=== PATIENT | male | born 1980 | race Caucasian/White ===

== ENCOUNTER 2020-12-04 09:46 | Outpatient (CLI) | payer BC, MEDICAID, SELFPAY ==
--- NOTE | 2020-12-04 10:14 | NM_ITS ---
WS: [id number] NUCLEAR MEDICINE THYROID UPTAKE AND SCAN HISTORY: HYPERTHYROIDISM COMPARISON: None available. Radionucleotide: 132 uCi Iodine-123 sodium iodide capsule. Oral ingestion. Imaging performed at 24 hours post ingestion of capsule. Marker placed over the chin and suprasternal notch. Homogeneous symmetric distribution throughout the thyroid gland. No area of focal photopenia or incre ased uptake to suggest a hypo or hyperfunctioning nodule. Gland measures approximate 5 cm in length w hich is normal. Thyroid uptake at 24 hours: 33.5%. (Normal uptake at 24 hours 10-30%). NM/NM thyroid uptake multi 57709 IMPRESSION: 1. Normal thyroid scan. No photopenic defects. 2. Very mildly elevated thyroid uptake secondary to mild hyperthyroidism.
== END 2020-12-04 09:47 | disposition home or self-care (01) ==
PROVIDERS: Visit Provider Family Medicine
DX: E05.90 Thyrotoxicosis, unspecified without thyrotoxic crisis or storm (principal)
CPT/HCPCS: 78014; A9516

== ENCOUNTER 2020-12-26 16:56 | Outpatient (CLI) | payer BC, MEDICAID, SELFPAY ==
--- NOTE | 2020-12-26 17:03 | XR_ITS ---
WS: [id number] Chest 2 views, 12/26/2020 Clinical Data: CHEST DISCOMFORT Comparison: Portable chest, 03/23/2013. Findings: No nodules, masses or effusions are seen. The heart is normal. The pulmonary vascularity is not increased. No pneumonia or pneumothorax is seen. XR/XR chest 2V* [id number] Impression: Negative chest.
== END 2020-12-26 16:57 | disposition home or self-care (01) ==
LOC: RAD 17:00
PROVIDERS: PCP Family Medicine; Visit Provider Family Medicine
DX: R07.89 Other chest pain (principal); R74.8 Abnormal levels of other serum enzymes
CPT/HCPCS: 71046

== ENCOUNTER → 2021-01-25 13:21 | Outpatient (BNVA) | payer BC, MEDICAID, SELFPAY | PROVIDERS: PCP Family Medicine; Referring Provider Family Medicine; Visit Provider Internal Medicine | DX: E05.00 Thyrotoxicosis with diffuse goiter without thyrotoxic crisis or storm (principal); Z87.891 Personal history of nicotine dependence | CPT/HCPCS: 99204 ==

== ENCOUNTER → 2021-04-03 08:59 | Outpatient (BNVA) | payer BC, MEDICAID, SELFPAY | PROVIDERS: PCP Family Medicine; Visit Provider Surgery | DX: Z11.52 Encounter for screening for COVID-19 (principal); Z20.822 Contact with and (suspected) exposure to COVID-19 | CPT/HCPCS: 87635 ==

== ENCOUNTER 2021-04-05 11:22 | Day surgery (SDC) | payer BC, MEDICAID, SELFPAY ==
[2021-04-04 11:06] VITALS: BMI 25.1
--- NOTE | 2021-04-05 11:51 | ANES.PREANE2 ---
Pre-Anesthetic Assessment Pre-Anesthetic Assessment: Height/Weight: Height 1.78 m Weight 79.379 kg Proposed Procedure: Operation Date: 04/05/21 12:30 Proposed Procedures p Colonoscopy 04344 K92.1(Not Applicable) - Krish Mckeon MD Was Beta Camille taken within 24 hours: N/A Was Clonidine taken within 24 hours: N/A Social: Social History: Tobacco and No alcohol Exam: Pre-Anes Outpt Exam: alert, oriented x 3, clear to auscultation bilaterally and regular rate & rhythm Airway: Cervical ROM: WNL MP: 2 Dentition: Chipped Pulmonary: Pulmonary: COPD Anesthetic Plan: ASA status: 2 Anesthesia: MAC Risk of > 500 ml blood loss (7ml/kg in children): No PFSH Anesthesia PFSH: Medical History Hyperthyroidism Surgical History No pertinent past surgical history Family History Father Hip joint replacement by other means Mother Hypertension Liver problem Social History Second hand smoke exposure: Yes Smoking risk assessment/counseling performed?: Yes Alcohol intake: never Desire information about alcohol rehabilitation?: No Counseling given: No Desire information about substance/drug rehabilitation?: No Counseling given: Yes Adopted: No Caregiver/support person: No Lives independently: Yes Household members: spouse Housing: House Marital status: Number of children: 5 Highest education level completed: Some College, No Degree service: No Current occupational status: employed Data Anesthesia Cardiac Studies: No Data to Display
[2021-04-05 12:16] VITALS: BP 132/85; PULSE 65; RESP 18; TEMP 36.5; O2SAT 95
[2021-04-05] MEDS: sodium chloride 0.9% 1,000 ML 30 ML IV (12:22)
--- NOTE | 2021-04-05 13:10 | P.HP_ITS ---
Same Day Surgery H&P Indication for Procedure/HPI DATE OF PROCEDURE: April 05, 2021 CHIEF COMPLAINT/INDICATIONFOR SURGICAL PROCEDURE: colonoscopy PREOP DIAGNOSIS: diagnostic PLANNED PROCEDRUE: Operation Date: 04/05/21 12:30 Proposed Procedures p Colonoscopy 32995 K92.1(Not Applicable) - Krish Mckeon MD Medications/Allergies* Home Medications Medication Instructions Recorded Confirmed Type No Known Home Medications 01/25/21 04/04/21 History Allergies/Adverse Reactions Allergy/AdvReac Type Severity Reaction Status Date / Time No Known Allergies Allergy Verified 04/04/21 11:05 Current Medications: Generic Name Dose Route Start Last Admin Trade Name Freq PRN Reason Stop Dose Admin Sodium Chloride 1,000 mls @ 30 mls/hr 04/05/21 12:00 04/05/21 12:22 Sodium Chloride 0.9% IV 04/06/21 11:59 30 mls/hr .Q24H [place] Administration Pertinent History/Comorbid Conditions* Medical History (Updated 01/27/21 @ 16:37 by Toi Taylor MD) Hyperthyroidism Surgical History (Updated 01/27/21 @ 13:37 by Toi Taylor MD) No pertinent past surgical history Family History (Updated 01/25/21 @ 13:33 by Bobbi Willard LPN) Liver problem Mother Hip joint replacement by other means Father Hypertension Mother Social History Second hand smoke exposure: Yes Smoking risk assessment/counseling performed?: Yes Alcohol intake: never Desire information about alcohol rehabilitation?: No Counseling given: No Desire information about substance/drug rehabilitation?: No Counseling given: Yes Adopted: No Caregiver/support person: No Lives independently: Yes Household members: spouse Housing: House Marital status: Number of children: 5 Highest education level completed: Some College, No Degree service: No Current occupational status: employed Pertinent Exam Findings alert, oriented x 3 and regular rate & rhythm Recommendations Surgery/Procedure today Coding Level of Care Code Acute Director Of Operations Support for Mariam Jimenez
[2021-04-05 13:34] VITALS: BP 122/80; PULSE 74; RESP 14; TEMP 36.3; O2SAT 95
[2021-04-05 13:50] VITALS: BP 109/73; PULSE 64; RESP 16; O2SAT 95
--- NOTE | 2021-04-05 13:59 | ANE.PACU2 ---
Documented by User: Jovana Brewster CRNA 04/05/21 13:59 Inpatient post-anesthesia follow up: Airway intact: Yes Vital signs: Temperature 97.3 F Pulse Rate 64 Respiratory Rate 16 Blood Pressure 109/73 Pulse Oximetry 95 Oxygen Delivery Me thod Room Air Oxygen Flow Rate 3 Fraction of Inspir ed Oxygen Hydration adequate: Yes Mental status: Baseline
== END 2021-04-05 14:14 | disposition home or self-care (01) ==
PROVIDERS: PCP Family Medicine; Visit Provider Surgery
PROC: 0DJD8ZZ Inspection of Lower Intestinal Tract, Via Natural or Artificial Opening Endoscopic (ICD-10-PCS; CPT 45378; principal; 2021-04-05 12:30)
DX: K92.1 Melena (principal); K64.8 Other hemorrhoids; J44.9 Chronic obstructive pulmonary disease, unspecified; E03.9 Hypothyroidism, unspecified
CPT/HCPCS: 45378; 96360; 96361; J7030

== ENCOUNTER 2022-03-29 00:15 | Emergency (ER) | payer BC, MEDICAID, SELFPAY ==
--- NOTE | 2022-03-29 00:20 | XRR_ITS ---
PROCEDURE INFORMATION: Exam: XR Abdomen Exam date and time: 03/29/2022 12:35 AM Age: 41 years old Clinical indication: Abdominal pain; Right; Patient HX: C/O RT flank pain with hematuria. ; Additional info: Back pain and hematuria TECHNIQUE: Imaging protocol: Radiologic exam of the abdomen. Views: Frontal supine view of the abdomen. 1 View. COMPARISON: CR XR chest 2V* [id number] 12/26/2020 5:22 PM FINDINGS: Gastrointestinal tract: No small bowel dilation or free air identified. Organs: Possible small right kidney stone overlies the right L2 transverse process. This measures up to about 2 mm. Bones/joints: Bilateral hip mild DJD. Mild scoliosis. XR/XR KUB [id number] IMPRESSION: 1. No small bowel obstruction or free air. 2. Possible tiny right kidney stone. Advise correlation.
[2022-03-29 00:24] VITALS: BP 170/97; PULSE 78; RESP 24; TEMP 36.9; O2SAT 96
[2022-03-29] MEDS: ketorolac 30 mg/mL INJ IVP (00:41)
[2022-03-29] MEDS: sodium chloride 0.9% 1,000 ML 999 ML IV (00:42)
[2022-03-29 00:44] LABS: Basophils # 0.1 10^3/uL (0.0-0.1); Basophils % 0.5 %; Eosinophils % 0.1 %; Hematocrit 50.5 % (42.0-52.0); Hemoglobin 17.3 g/dL (11.7-16.6); Lymphocytes # 1.3 10^3/uL (0.8-4.8); Lymphocytes % 7.4 %; Mean Corpuscular HGB Conc 34.3 g/dL (30.0-36.0); Mean Corpuscular Hemoglobin 31.6 pg (28.0-34.0); Mean Corpuscular Volume 92.3 fl (80-94); Mean Platelet Volume 9.9 fL (7.4-10.4); Monocytes # 0.7 10^3/uL (0.2-0.9); Neutrophils # 15.17 10^3/uL (1.8-7.7); Neutrophils % 87.6 %; Nucleated Red Blood Cells % 0 %; Platelet Count 319 10^3/cmm (130-400); Red Blood Count 5.47 10^6/uL (4.1-5.3); Red Cell Distribution Width 11.9 % (12.1-15.1); White Blood Count 17.3 10^3/uL (4.0-10.0)
[2022-03-29 00:54] LABS: Bilirubin Urine 1+ (Negative); Blood Urine 3+ (Negative); Glucose Urine UA Norm (Normal); Ketones Urine 2+ (Negative); Nitrate Urine Negative (Negative); Protein Urine 2+ (Negative); Urine Appearance Hazy (CLEAR); Urine Color Red (Yellow); pH Urine 5 (5-7)
[2022-03-29 00:55] LABS: Add Urine Culture? No; Add Urine Microscopic? YES; Leukocyte Esterase Urine Negative (Negative); RBC Urine TOO NUMEROUS TO CNT /hpf (0-2); Urobilinogen Urine Norm (Negative)
[2022-03-29 01:01] LABS: Alanine Aminotransferase 34 U/L (0-41); Albumin Level 4.3 g/dL (3.5-5.2); Alkaline Phosphatase 124 U/L (40-130); Anion Gap 18.9 (5-19); Aspartate Amino Transferase 16 U/L (0-40); Blood Urea Nitrogen 20 mg/dL (6-20); Calcium 9.3 mg/dL (8.5-10.5); Carbon Dioxide 17 mmol/L (22-29); Chloride 104 mmol/L (98-107); Globulin 3.4 g/dL (1.3-4.6); Glomerular Filtration Rate 82.3 mL/min (90-130); Glucose 173 mg/dL (65-115); Osmolality Calculated 289 mOsm/kg (285-295); Potassium 3.9 mmol/L (3.5-5.1); Sodium 136 mmol/L (136-145); Total Bilirubin 0.6 mg/dL (0.15-1.2); Total Protein 7.7 g/dL (6.6-8.7)
--- NOTE | 2022-03-29 01:04 | CTR_ITS ---
PROCEDURE INFORMATION: Exam: CT Abdomen And Pelvis Without Contrast Exam date and time: 03/29/2022 1:17 AM Age: 41 years old Clinical indication: Abdominal pain; Right; Patient HX: C/O RT flank pain with hematuria. Possible RT nephrolithiasis noted on kub film. ; Additional info: Renal stone right side TECHNIQUE: Imaging protocol: Computed tomography of the abdomen and pelvis without contrast. Radiation optimization: All CT scans at this facility use at least one of these dose optimization techniques: automated exposure control; mA and/or kV adjustment per patient size (includes targeted exams where dose is matched to clinical indication); or iterative reconstruction. COMPARISON: CR (ABDOMEN, ) 03/29/2022 12:35 AM RADIATION DOSE METRICS: Total DLP (mGy-cm): 562.4 FINDINGS: Lungs: Multiple mainly RLL benign, calcified lung nodules. Diaphragm: Small hiatal hernia. Liver: Unremarkable. No discrete mass. Gallbladder and bile ducts: No calcified gallstones or biliary dilation identified. Pancreas: Unremarkable with no suspicious mass. No ductal dilation. Spleen: The spleen is not enlarged. No suspicious mass is noted. Adrenal glands: Normal. No mass. Kidneys and ureters: The right proximal ureter shows a 4 mm calculus causing at least mild obstruction. No left hydronephrosis. Somewhat lobular and scarred kidneys. Multiple bilateral kidney stones are present, and these measure up to about 4 mm right and 4 mm left. A few minute left renal cysts are likely. These measure up to about 10 mm. Stomach and bowel: Moderately fecal filled colon. Appendix: Normal appendix. Intraperitoneal space: Unremarkable. No free air. No suspicious fluid collection. Vasculature: Mild vascular calcifications are present. Lymph nodes: No enlarged lymph nodes. Urinary bladder: Unremarkable as visualized. Reproductive: Mildly enlarged prostate. Bones/joints: Old bilateral L5 pars defects are present with grade 1 L5 on S1 anterolisthesis. Soft tissues: Small fat umbilical hernia. Small fat in right inguinal canal. CT/CT abdomen pelvis wo con [id number] IMPRESSION: 1. Right proximal ureteral 4 mm calculus causes mild obstruction. 2. Bilateral kidney stones and multiple other chronic findings above. 3. Constipation. COMMENTS: Consistent with the [employer]'s Incidental Findings Committee white paper (J Am Sujatha Radiol 2018): Any incidental renal lesion less than 1 cm or classified as too small to characterize, or any incidental cystic renal lesion characterized as simple-appearing, is likely benign. No follow-up imaging is recommended for these lesions per consensus recommendations based on imaging criteria.
--- NOTE | 2022-03-29 01:08 | W.ED.MALEGU ---
Documented by User: KRISTINA Stuart 03/29/22 02:33 HPI - Male Genitourinary General: Chief complaint: Urogenital-Male Stated complaint: Peeing Blood/Lower Back Pain Time Seen by Provider: 03/29/22 00:20 History of Present Illness: Patient presents with right-sided abdominal and back pain started suddenly about 8:00 tonight. He reports that he has had kidney stones in the past this feels similar but the pain is unbearable. He reports that he is peeing straight blood. He denies fever, chills. He has some nausea but has not vomited. He reports that he cannot find a comfortable position. Associated symptoms: Reports dysuria, hematuria and nausea; Deny vomiting Review of Systems Const: Denies: fever(s) or chills Card: Denies: chest pain or palpitations Resp: Denies: dyspnea, productive cough or non-productive cough GI: Reports: abdominal pain and nausea; Denies: vomiting : Reports: flank pain, difficulty urinating, dysuria and hematuria PFS ED PFSH: Medical History Hyperthyroidism Surgical History Status post colonoscopy (04/05/21) internal hemorrhoids Family History Father Hip joint replacement by other means Mother Hypertension Liver problem Social History Second hand smoke exposure: Yes Smoking risk assessment/counseling performed?: Yes Alcohol intake: never Desire information about alcohol rehabilitation?: No Counseling given: No Desire information about substance/drug rehabilitation?: No Counseling given: Yes Adopted: No Caregiver/support person: No Lives independently: Yes Household members: spouse Housing: House Marital status: Number of children: 5 Highest education level completed: Some College, No Degree service: No Current occupational status: employed Physical Exam Const: COMMON NORMALS: patient oriented x3 and alert OTHER: Patient is in obvious pain. He is standing in the room pacing holding his side. He cannot find a comfortable position to sit. Neck/C-Spine: COMMON NORMALS: no JVD Resp: COMMON NORMALS: normal respiratory effort, No use of accessory muscles and clear to auscultation bilaterally AUSCULTATION: clear to auscultation bilaterally OTHER: Patient is slightly tachypneic, but he is in significant pain at this time Cardio: COMMON NORMALS: no JVD, regular rate, regular rhythm, S1 normal heart sound present and S2 normal heart sound present RATE: regular rate RHYTHM: regular rhythm HEART SOUNDS: S1 normal heart sound present and S2 normal heart sound present GI: COMMON NORMALS: Normal to inspection, nondistended, normoactive bowel sounds present and Soft to palpation PALPATION: Yes Soft to palpation and Yes Tenderness to palpation present (GI) Details: RLQ and RUQ : BLADDER/KIDNEY EXAM: Yes CVA tenderness on the right Back/Pelvis: GENERAL BACK: Yes CVA tenderness Neuro: COMMON NORMALS: patient oriented x3 SENSORIUM/ORIENTATION: Yes alert Course Vital Signs: Vital signs: Vital Signs Temperature 98.4 F 03/29/22 00:24 Pulse Rate 57 L 03/29/22 02:09 Respiratory Rate 16 03/29/22 02:09 Blood Pressure 110/70 03/29/22 02:09 Pulse Oximetry 93 03/29/22 02:09 Oxygen Delivery Me thod 03/29/22 00:24 MDM - Male Medical Decision Making Consider renal stone, pyelonephritis, hydronephrosis, renal colic, urinary tract infection, appendicitis Patient with gross hematuria and elevated white blood cell count. KUB shows small right renal stone. Order CT abdomen and pelvis without contrast to further evaluate. Toradol administered and shortly after patient is sleeping in bed comfortably. He reports pain is resolved. CT abdomen and pelvis shows a right proximal ureter 4 mm calculus causing mild obstruction, bilateral kidney stones, constipation. We will send patient home with conservative management. We discussed typical course of illness. Treat patient to cover for bacterial infection with cephalosporin antibiotic. Flomax and Toradol provided. Discussed the importance of staying well-hydrated. Follow-up with primary care provider for continued evaluation and further address of kidney stones as necessary. Case management referral to urology given the patient has nephrolithiasis bilateral kidneys. Return to the emergency department as needed for new or worsening symptoms, inability to urinate, inability to keep down oral liquids, increasing/worsening pain, fever, chills, nausea, vomiting. Lab Data 03/29/22 00:40 03/29/22 00:40 Radiology Impressions KUB X-Ray 03/29/22 00:20 IMPRESSION: 1. No small bowel obstruction or free air. 2. Possible tiny right kidney stone. Advise correlation. Abdomen/Pelvis CT 03/29/22 01:04 IMPRESSION: 1. Right proximal ureteral 4 mm calculus causes mild obstruction. 2. Bilateral kidney stones and multiple other chronic findings above. 3. Constipation. COMMENTS: Consistent with the [employer]'s Incidental Findings Committee white paper (J Am Sujatha Radiol 2018): Any incidental renal lesion less than 1 cm or classified as too small to characterize, or any incidental cystic renal lesion characterized as simple-appearing, is likely benign. No follow-up imaging is recommended for these lesions per consensus recommendations based on imaging criteria. Laboratory Results WBC 17.3 10^3/uL (4.0-10.0) H 03/29/22 00:40 RBC 5.47 10^6/uL (4.1-5.3) H 03/29/22 00:40 Hgb 17.3 g/dL (11.7-16.6) H 03/29/22 00:40 Hct 50.5 % (42.0-52.0) 03/29/22 00:40 MCV 92.3 fl (80-94) 03/29/22 00:40 MCH 31.6 pg (28.0-34.0) 03/29/22 00:40 MCHC 34.3 g/dL (30.0-36.0) 03/29/22 00:40 RDW 11.9 % (12.1-15.1) L 03/29/22 00:40 Plt Count 319 10^3/cmm (130-400) 03/29/22 00:40 MPV 9.9 fL (7.4-10.4) 03/29/22 00:40 Neut % (Auto) 87.6 % 03/29/22 00:40 Lymph % (Auto) 7.4 % 03/29/22 00:40 [place] % (Auto) 4.0 % 03/29/22 00:40 Eos % (Auto) 0.1 % 03/29/22 00:40 Baso % (Auto) 0.5 % 03/29/22 00:40 Neut # (Auto) 15.17 10^3/uL (1.8-7.7) H 03/29/22 00:40 Lymph # (Auto) 1.3 10^3/uL (0.8-4.8) 03/29/22 00:40 [place] # (Auto) 0.7 10^3/uL (0.2-0.9) 03/29/22 00:40 Eos # (Auto) 0.0 10^3/uL (0.0-0.8) 03/29/22 00:40 Baso # (Auto) 0.1 10^3/uL (0.0-0.1) 03/29/22 00:40 Nucleated RBC % (auto) 0 % 03/29/22 00:40 Nucleated RBCs # 0.0 /100WBC 03/29/22 00:40 Sodium 136 mmol/L (136-145) 03/29/22 00:40 Potassium 3.9 mmol/L (3.5-5.1) 03/29/22 00:40 Chloride 104 mmol/L (98-107) 03/29/22 00:40 Carbon Dioxide 17 mmol/L (22-29) L 03/29/22 00:40 Anion Gap 18.9 (5-19) 03/29/22 00:40 BUN 20 mg/dL (6-20) 03/29/22 00:40 Creatinine 1.0 mg/dL (0.7-1.2) 03/29/22 00:40 GFR Calculation 82.3 mL/min (90-130) L 03/29/22 00:40 Glucose 173 mg/dL (65-115) H 03/29/22 00:40 Calculated Osmolality 289 mOsm/kg (285-295) 03/29/22 00:40 Calcium 9.3 mg/dL (8.5-10.5) 03/29/22 00:40 Total Bilirubin 0.6 mg/dL (0.15-1.2) 03/29/22 00:40 AST 16 U/L (0-40) 03/29/22 00:40 ALT 34 U/L (0-41) 03/29/22 00:40 Alkaline Phosphatase 124 U/L (40-130) 03/29/22 00:40 Total Protein 7.7 g/dL (6.6-8.7) 03/29/22 00:40 Albumin 4.3 g/dL (3.5-5.2) 03/29/22 00:40 Globulin 3.4 g/dL (1.3-4.6) 03/29/22 00:40 Urine Color Red (Yellow) 03/29/22 00:35 Urine Appearance Hazy (CLEAR) A 03/29/22 00:35 Urine pH 5 (5-7) 03/29/22 00:35 Ur Specific [place] 1.030 (1.005-1.030) 03/29/22 00:35 Urine Protein 2+ (Negative) H 03/29/22 00:35 Urine Glucose (UA) Norm (Normal) 03/29/22 00:35 Urine Ketones 2+ (Negative) H 03/29/22 00:35 Urine Blood 3+ (Negative) H 03/29/22 00:35 Urine Nitrate Negative (Negative) 03/29/22 00:35 Urine Bilirubin 1+ (Negative) H 03/29/22 00:35 Urine Urobilinogen Norm mg/dL (Negative) 03/29/22 00:35 Ur Leukocyte Esterase Negative (Negative) 03/29/22 00:35 Urine RBC Too numerous to cnt /hpf (0-2) H 03/29/22 00:35 Urine WBC None /hpf (0-5) 03/29/22 00:35 Ur Squamous Epith Cells None /hpf (0-5) 03/29/22 00:35 Amorphous Sediment Not Reportable 03/29/22 00:35 Urine Bacteria None /hpf (NONE) 03/29/22 00:35 Discharge Plan Discharge Patient Disposition: Home Clinical Impression: Nephrolithiasis, Calculus, ureteral Condition: Stable Prescriptions: New ketorolac 10 mg tablet 10 mg PO Q6H PRN (Reason: pain) 3 Days Qty: 12 0RF Flomax 0.4 mg capsule 0.4 mg PO DAILY 7 Days Qty: 7 0RF cefdinir 300 mg capsule 300 mg PO BID 7 Days Qty: 14 0RF ondansetron 4 mg tablet,disintegrating 4 mg PO Q8H PRN (Reason: nausea and vomiting) 3 Days Qty: 9 0RF Discharge Orders: Discharge ED (Routine); Ordered 03/29/22 Ordered By: Lili Benítez Discharge Diet: Usual diet Discharge Activity: Increase activity as tolerated Patient Instructions: Kidney Stones (ED), Renal Colic (ED) Activity Restrictions/Additional Instructions: Take medication as prescribed. Follow-up with primary care provider next week for reevaluation. Return to the ER for any new or worsening symptoms including, but not limited to, inability to keep fluids down, worsening pain, fever, chills, nausea, vomiting. Coding Level of Care Code ED Head Cd Reactor Operator for Chg Fwd Exam Detailed Documented by User: Lucian Taylor DO 03/29/22 06:19 HPI - Male Genitourinary General: Chief complaint: Urogenital-Male Stated complaint: Peeing Blood/Lower Back Pain Time Seen by Provider: 03/29/22 00:20 [facility] ED PFSH: Medical History Hyperthyroidism Surgical History Status post colonoscopy (04/05/21) internal hemorrhoids Family History Father Hip joint replacement by other means Mother Hypertension Liver problem Social History Second hand smoke exposure: Yes Smoking risk assessment/counseling performed?: Yes Alcohol intake: never Desire information about alcohol rehabilitation?: No Counseling given: No Desire information about substance/drug rehabilitation?: No Counseling given: Yes Adopted: No Caregiver/support person: No Lives independently: Yes Household members: spouse Housing: House Marital status: Number of children: 5 Highest education level completed: Some College, No Degree service: No Current occupational status: employed Course Vital Signs: Vital signs: Vital Signs Temperature 98.4 F 03/29/22 00:24 Pulse Rate 57 L 03/29/22 02:09 Respiratory Rate 16 03/29/22 02:09 Blood Pressure 110/70 03/29/22 02:09 Pulse Oximetry 93 03/29/22 02:09 Oxygen Delivery Me thod 03/29/22 00:24 MDM - Male Medical Decision Making Consider renal stone, pyelonephritis, hydronephrosis, renal colic, urinary tract infection, appendicitis Patient with gross hematuria and elevated white blood cell count. KUB shows small right renal stone. Order CT abdomen and pelvis without contrast to further evaluate. Toradol administered and shortly after patient is sleeping in bed comfortably. He reports pain is resolved. CT abdomen and pelvis shows a right proximal ureter 4 mm calculus causing mild obstruction, bilateral kidney stones, constipation. We will send patient home with conservative management. We discussed typical course of illness. Treat patient to cover for bacterial infection with cephalosporin antibiotic. Flomax and Toradol provided. Discussed the importance of staying well-hydrated. Follow-up with primary care provider for continued evaluation and further address of kidney stones as necessary. Case management referral to urology given the patient has nephrolithiasis bilateral kidneys. Return to the emergency department as needed for new or worsening symptoms, inability to urinate, inability to keep down oral liquids, increasing/worsening pain, fever, chills, nausea, vomiting. Chart reviewed and patient discussed with midlevel. Agree with assessment and plan. Lab Data 03/29/22 00:40 03/29/22 00:40 Radiology Impressions KUB X-Ray 03/29/22 00:20 IMPRESSION: 1. No small bowel obstruction or free air. 2. Possible tiny right kidney stone. Advise correlation. Abdomen/Pelvis CT 03/29/22 01:04 IMPRESSION: 1. Right proximal ureteral 4 mm calculus causes mild obstruction. 2. Bilateral kidney stones and multiple other chronic findings above. 3. Constipation. COMMENTS: Consistent with the [employer]'s Incidental Findings Committee white paper (J Am Sujatha Radiol 2018): Any incidental renal lesion less than 1 cm or classified as too small to characterize, or any incidental cystic renal lesion characterized as simple-appearing, is likely benign. No follow-up imaging is recommended for these lesions per consensus recommendations based on imaging criteria. Laboratory Results WBC 17.3 10^3/uL (4.0-10.0) H 03/29/22 00:40 RBC 5.47 10^6/uL (4.1-5.3) H 03/29/22 00:40 Hgb 17.3 g/dL (11.7-16.6) H 03/29/22 00:40 Hct 50.5 % (42.0-52.0) 03/29/22 00:40 MCV 92.3 fl (80-94) 03/29/22 00:40 MCH 31.6 pg (28.0-34.0) 03/29/22 00:40 MCHC 34.3 g/dL (30.0-36.0) 03/29/22 00:40 RDW 11.9 % (12.1-15.1) L 03/29/22 00:40 Plt Count 319 10^3/cmm (130-400) 03/29/22 00:40 MPV 9.9 fL (7.4-10.4) 03/29/22 00:40 Neut % (Auto) 87.6 % 03/29/22 00:40 Lymph % (Auto) 7.4 % 03/29/22 00:40 [place] % (Auto) 4.0 % 03/29/22 00:40 Eos % (Auto) 0.1 % 03/29/22 00:40 Baso % (Auto) 0.5 % 03/29/22 00:40 Neut # (Auto) 15.17 10^3/uL (1.8-7.7) H 03/29/22 00:40 Lymph # (Auto) 1.3 10^3/uL (0.8-4.8) 03/29/22 00:40 [place] # (Auto) 0.7 10^3/uL (0.2-0.9) 03/29/22 00:40 Eos # (Auto) 0.0 10^3/uL (0.0-0.8) 03/29/22 00:40 Baso # (Auto) 0.1 10^3/uL (0.0-0.1) 03/29/22 00:40 Nucleated RBC % (auto) 0 % 03/29/22 00:40 Nucleated RBCs # 0.0 /100WBC 03/29/22 00:40 Sodium 136 mmol/L (136-145) 03/29/22 00:40 Potassium 3.9 mmol/L (3.5-5.1) 03/29/22 00:40 Chloride 104 mmol/L (98-107) 03/29/22 00:40 Carbon Dioxide 17 mmol/L (22-29) L 03/29/22 00:40 Anion Gap 18.9 (5-19) 03/29/22 00:40 BUN 20 mg/dL (6-20) 03/29/22 00:40 Creatinine 1.0 mg/dL (0.7-1.2) 12 00:40 GFR Calculation 82.3 mL/min (90-130) L 03/29/22 00:40 Glucose 173 mg/dL (65-115) H 03/29/22 00:40 Calculated Osmolality 289 mOsm/kg (285-295) 03/29/22 00:40 Calcium 9.3 mg/dL (8.5-10.5) 03/29/22 00:40 Total Bilirubin 0.6 mg/dL (0.15-1.2) 03/29/22 00:40 AST 16 U/L (0-40) 03/29/22 00:40 ALT 34 U/L (0-41) 03/29/22 00:40 Alkaline Phosphatase 124 U/L (40-130) 03/29/22 00:40 Total Protein 7.7 g/dL (6.6-8.7) 03/29/22 00:40 Albumin 4.3 g/dL (3.5-5.2) 03/29/22 00:40 Globulin 3.4 g/dL (1.3-4.6) 03/29/22 00:40 Urine Color Red (Yellow) 03/29/22 00:35 Urine Appearance Hazy (CLEAR) A 03/29/22 00:35 Urine pH 5 (5-7) 03/29/22 00:35 Ur Specific [place] 1.030 (1.005-1.030) 03/29/22 00:35 Urine Protein 2+ (Negative) H 03/29/22 00:35 Urine Glucose (UA) Norm (Normal) 03/29/22 00:35 Urine Ketones 2+ (Negative) H 03/29/22 00:35 Urine Blood 3+ (Negative) H 03/29/22 00:35 Urine Nitrate Negative (Negative) 03/29/22 00:35 Urine Bilirubin 1+ (Negative) H 03/29/22 00:35 Urine Urobilinogen Norm mg/dL (Negative) 03/29/22 00:35 Ur Leukocyte Esterase Negative (Negative) 03/29/22 00:35 Urine RBC Too numerous to cnt /hpf (0-2) H 03/29/22 00:35 Urine WBC None /hpf (0-5) 12 00:35 Ur Squamous Epith Cells None /hpf (0-5) 12 00:35 Amorphous Sediment Not Reportable 03/29/22 00:35 Urine Bacteria None /hpf (NONE) 03/29/22 00:35 Discharge Plan Discharge Patient Disposition: Home Clinical Impression: Nephrolithiasis, Calculus, ureteral Condition: Stable Prescriptions: New ketorolac 10 mg tablet 10 mg PO Q6H PRN (Reason: pain) 3 Days Qty: 12 0RF Flomax 0.4 mg capsule 0.4 mg PO DAILY 7 Days Qty: 7 0RF cefdinir 300 mg capsule 300 mg PO BID 7 Days Qty: 14 0RF ondansetron 4 mg tablet,disintegrating 4 mg PO Q8H PRN (Reason: nausea and vomiting) 3 Days Qty: 9 0RF Discharge Orders: Discharge ED (Routine); Ordered 03/29/22 Ordered By: Lili Benítez Discharge Diet: Usual diet Discharge Activity: Increase activity as tolerated Patient Instructions: Kidney Stones (ED), Renal Colic (ED) Activity Restrictions/Additional Instructions: Take medication as prescribed. Follow-up with primary care provider next week for reevaluation. Return to the ER for any new or worsening symptoms including, but not limited to, inability to keep fluids down, worsening pain, fever, chills, nausea, vomiting. Coding Level of Care Code ED Head Cd Reactor Operator for Chg Fwd Exam Detailed
[2022-03-29] MEDS: tamsulosin 0.4 mg Capsule PO (01:12)
[2022-03-29 02:09] VITALS: BP 110/70; PULSE 57; RESP 16; O2SAT 93
[2022-03-29] MEDS: cefdinir 300 MG CAPSULE PO (02:09)
--- NOTE | 2022-03-29 11:55 | DCPLANNER ---
Addendum entered by Edwina Dupree 04/10/22 12:13: Patient had a follow up appointment scheduled with urology - patient did attend appointment. Addendum entered by Edwina Dupree 04/02/22 15:06: Patient has a follow up appointment scheduled for Friday, April 03, 2022 at 4:[address] Schwab at urology. Clinic will call patient with appointment information. Original Note: manager floral had message to schedule a follow up appointment for patient with urology. manager floral sent patients information to the front office staff at urology. Patients information will be printed and reviewed. Clinic will call patient with appointment information.
== END 2022-03-29 02:15 | disposition home or self-care (01) ==
PROVIDERS: Emergency Provider Nurse Practitioner Family
DX: N20.2 Calculus of kidney with calculus of ureter (principal); Z87.442 Personal history of urinary calculi; R11.0 Nausea
CPT/HCPCS: 74018; 74176; 80053; 81001; 85025; 96361; 96374; 99285; J1885; J7030

== ENCOUNTER 2022-03-29 08:38 | Emergency (ER) | payer BC, MEDICAID, SELFPAY ==
[2022-03-29 08:42] VITALS: BP 136/88; PULSE 91; RESP 14; TEMP 36.4; O2SAT 97; BMI 24.3
[2022-03-29] MEDS: morphine 4 mg/mL SDV 1 mL IM (09:13)
[2022-03-29] MEDS: ondansetron 2 mg/ML SDV 2 mL 4 MG IM (09:13)
--- NOTE | 2022-03-29 09:48 | ED_ITS ---
HPI - Back Pain/Injury General: Chief Complaint: Back Pain/Injury Stated Complaint: kidney/abd pain, Time Seen by Provider: 03/29/22 08:42 Source: patient Mode of arrival: ambulatory History of Present Illness: 41-year-old male presents emergency room for right flank pain. Recent left-sided nonobstructing right renal stone. He has not filled his medications he still having pain hematuria and return to the emergency room. He denies any fever sweats or chills. MD elicited complaint: back pain Pertinent past history: kidney stones Onset (ago): hour(s) Timing: constant Severity: moderate Similar Symptoms Previously: Yes Quality: sharp Location: right flank Exacerbating factors: none Relieving factors: none Associated symptoms: Reports hematuria; Deny abdominal pain, arthralgias, chills, change in bowel habits, difficulty walking, dysuria, fatigue, fecal incontinence, fever(s), myalgias, nausea, numbness, syncope, tingling/numbness/burning, urinary frequency, urinary urgency, vomiting or weakness Work related injury: No Review of Systems 2 Const: Denies: fever(s), chills, fatigue or malaise ENMT: Denies: throat pain, ear or mastoid pain, nasal discharge or nasal congestion Card: Denies: chest pain, palpitations, irregular heart rhythm or syncope Resp: Denies: dyspnea, productive cough or non-productive cough GI: Denies: abdominal pain, nausea, vomiting, fecal incontinence or change in bowel habits : Reports: hematuria; Denies: difficulty urinating, dysuria, urinary frequency or urinary urgency Skin/Breast: Denies: rash or pruritus Neuro: Denies: difficulty walking PFS ED PFSH: Medical History Hyperthyroidism Surgical History Status post colonoscopy (04/05/21) internal hemorrhoids Family History Father Hip joint replacement by other means Mother Hypertension Liver problem Social History Second hand smoke exposure: Yes Smoking risk assessment/counseling performed?: Yes Alcohol intake: never Desire information about alcohol rehabilitation?: No Counseling given: No Desire information about substance/drug rehabilitation?: No Counseling given: Yes Adopted: No Caregiver/support person: No Lives independently: Yes Household members: spouse Housing: House Marital status: Number of children: 5 Highest education level completed: Some College, No Degree service: No Current occupational status: employed Physical Exam Const: COMMON NORMALS: no acute distress GENERAL APPEARANCE: cooperative and comfortable ORIENTATION/CONSCIOUSNESS: Yes awake, Yes oriented to person, Yes oriented to place and Yes oriented to time HENMT: COMMON NORMALS: normocephalic, atraumatic and hearing grossly normal bilaterally HEAD & SCALP: normocephalic and atraumatic Resp: COMMON NORMALS: normal respiratory effort, No retractions, No use of accessory muscles and clear to auscultation bilaterally AUSCULTATION: clear to auscultation bilaterally Cardio: COMMON NORMALS: regular rate, regular rhythm and No murmurs present (Cardio) RATE: regular rate RHYTHM: regular rhythm GI: COMMON NORMALS: Soft to palpation and No hepatosplenomegaly present AUSCULTATION: Yes normoactive bowel sounds PALPATION: Yes Soft to palpation, No Tenderness to palpation present (GI), No Guarding due to palpation present (GI) and Yes No hepatosplenomegaly present Extremity: COMMON NORMALS: normal to inspection, capillary refill normal, no clubbing, cyanosis or edema, no calf tenderness and no pedal edema Neuro: SENSORIUM/ORIENTATION: Yes oriented to person, Yes oriented to place and Yes oriented to time Skin: COMMON NORMALS: no rashes or lesions noted GENERAL SKIN EXAM: no rash es or lesions noted Course Vital Signs: Vital signs: Vital Signs Temperature 97.6 F 03/29/22 08:42 Pulse Rate 91 03/29/22 08:42 Respiratory Rate 14 03/29/22 08:42 Blood Pressure 136/88 03/29/22 08:42 Pulse Oximetry 97 03/29/22 08:42 Oxygen Delivery Me thod 03/29/22 08:42 MDM - Back Pain/Injury Medical Decision Making Known renal stone on the right side patient given medication here discharged home advised fill his medications use regularly Case management is making follow-up arranged with with urology. Medical Records I reviewed the patient's medical records. Labs I reviewed the patient's lab results. Discharge Plan Discharge Patient Disposition: Home Clinical Impression: Calculus, ureteral Condition: Stable Prescriptions: No Action ketorolac 10 mg tablet 10 mg PO Q6H PRN (Reason: pain) 3 Days Qty: 12 0RF Flomax 0.4 mg capsule 0.4 mg PO DAILY 7 Days Qty: 7 0RF cefdinir 300 mg capsule 300 mg PO BID 7 Days Qty: 14 0RF ondansetron 4 mg tablet,disintegrating 4 mg PO Q8H PRN (Reason: nausea and vomiting) 3 Days Qty: 9 0RF Discharge Orders: Discharge ED (Routine); Ordered 03/29/22 Ordered By: Lucian Taylor Referrals: Yani Chowdary, AUTO LOCATOR [Primary Care Provider] - Discharge Diet: Usual diet Discharge Activity: Increase activity as tolerated Patient Instructions: Opioid Safety, Pain Management Activity Restrictions/Additional Instructions: He was seen again for a right nephrolithiasis. You are given pain and nausea medications in the ER recommend you fill the medications prescribed to you last night and use those for ongoing discomfort. Coding Level of Care Code ED Outside Plant Technician for Mariam Jimenez
== END 2022-03-29 09:20 | disposition home or self-care (01) ==
PROVIDERS: Emergency Provider Family Medicine; PCP Nurse Practitioner Family
DX: N20.1 Calculus of ureter (principal); Z77.22 Contact with and (suspected) exposure to environmental tobacco smoke (acute) (chronic)
CPT/HCPCS: 96372; 99284; J2270; J2405

== ENCOUNTER 2022-03-30 01:18 | Emergency (ER) | payer BC, MEDICAID, SELFPAY ==
[2022-03-30 01:24] VITALS: BP 157/96; PULSE 69; RESP 26; TEMP 36.3; O2SAT 97; BMI 24.3
[2022-03-30 02:45] LABS: Glucose Urine UA Norm (Normal); Protein Urine 1+ (Negative); Specific Gravity, Urine 1.025 (1.005-1.030); Urine Appearance SL Hazy (CLEAR); Urine Color Yellow (Yellow); pH Urine 6 (5-7)
[2022-03-30 02:46] LABS: Add Urine Microscopic? YES; Bilirubin Urine 1+ (Negative); Blood Urine 3+ (Negative); Ketones Urine 2+ (Negative); Leukocyte Esterase Urine Negative (Negative); Nitrate Urine Negative (Negative); Urobilinogen Urine 4 mg/dL (Negative)
[2022-03-30 02:47] LABS: Add Urine Culture? No; Bacteria Urine TRACE /hpf; Mucus Urine 1+ /hpf; RBC Urine >100 /hpf (0-2); WBC Urine 0-4 /hpf (0-5)
[2022-03-30] MEDS: HYDROmorphone 1 mg/mL INJ 1 mL IVP ×2 (02:51→04:42)
[2022-03-30] MEDS: ondansetron 2 mg/ML SDV 2 mL 4 MG IVP (02:51)
[2022-03-30] MEDS: sodium chloride 0.9% 1,000 ML 999 ML IV (02:52)
--- NOTE | 2022-03-30 03:01 | ED_ITS ---
HPI - Back Pain/Injury General: Chief Complaint: Back Pain/Injury Stated Complaint: Kidney Stones Time Seen by Provider: 03/30/22 02:47 Source: patient Mode of arrival: ambulatory Limitations: no limitations History of Present Illness: 41-year-old male who was seen here yesterday has been having right-sided flank pain since yesterday and had a CT scan here showed a proximal 4 mm stone with mild hydronephrosis. Patient was not prescribed any nausea medicine and was prescribed Toradol he states has been vomiting his meds up and has been having increasing pain he states pain is sharp in his right side he rates it a 9 out of 10 it does radiate to the groin denies any fevers. Associated symptoms: Reports nausea and vomiting; Deny abdominal pain, chills or fever(s) Review of Systems Const: Denies: fever(s), chills, body aches or change in appetite Eyes: Denies: blurry vision or eye discomfort ENMT: Denies: throat pain or dental pain Card: Denies: chest pain Resp: Denies: dyspnea GI: Reports: nausea and vomiting; Denies: abdominal pain or diarrhea : Reports: flank pain Musc: Denies: neck pain or back pain Skin/Breast: Denies: rash Neuro: Denies: headache(s) Psych: Denies: depression Marquis/Lymph: Denies: easy bruising All/Imm: Denies: urticaria PFSH ED PFSH: Medical History Hyperthyroidism Surgical History Status post colonoscopy (04/05/21) internal hemorrhoids Family History Father Hip joint replacement by other means Mother Hypertension Liver problem Social History Second hand smoke exposure: Yes Smoking risk assessment/counseling performed?: Yes Alcohol intake: never Desire information about alcohol rehabilitation?: No Counseling given: No Desire information about substance/drug rehabilitation?: No Counseling given: Yes Adopted: No Caregiver/support person: No Lives independently: Yes Household members: spouse Housing: House Marital status: Number of children: 5 Highest education level completed: Some College, No Degree service: No Current occupational status: employed Physical Exam Const: COMMON NORMALS: no acute distress, patient oriented x3 and healthy appearing HENMT: COMMON NORMALS: normocephalic and atraumatic HEAD & SCALP: normocephalic and atraumatic Eye: COMMON NORMALS: Equal, round and reactive pupils present and EOMs intact bilaterally PUPIL: Yes Equal, round and reactive pupils present Neck/C-Spine: COMMON NORMALS: full ROM and supple Chest: COMMONS NORMALS: normal inspection of the chest and normal palpation of entire chest wall Resp: COMMON NORMALS: normal respiratory effort, No retractions, No use of accessory muscles and clear to auscultation bilaterally AUSCULTATION: clear to auscultation bilaterally Cardio: COMMON NORMALS: regular rate, regular rhythm and No murmurs present (Cardio) RATE: regular rate RHYTHM: regular rhythm GI: COMMON NORMALS: Normal to inspection, nondistended, normoactive bowel sounds present, Soft to palpation, non-tender and no masses PALPATION: Yes Soft to palpation Extremity: COMMON NORMALS: normal to inspection and full ROM Neuro: COMMON NORMALS: patient oriented x3, moves all extremities and no focal motor deficits Psych: COMMON NORMALS: mental status grossly normal, Normal thought process present and cooperative THOUGHT PROCESS: Normal thought process present Skin: COMMON NORMALS: no rashes or lesions noted and no wounds GENERAL SKIN EXAM: no rashes or lesions noted Course Vital Signs: Vital signs: Vital Signs Temperature 97.4 F L 03/30/22 01:24 Pulse Rate 69 03/30/22 01:24 Respiratory Rate 20 H 03/30/22 04:42 Blood Pressure 157/96 03/30/22 01:24 Pulse Oximetry 97 03/30/22 04:42 Oxygen Delivery Me thod 03/30/22 01:24 MDM - Back Pain/Injury Medical Decision Making Patient presents here with kidney stone his pains improved we will place him on pain meds he can follow-up with urology he is return if worsening he understands agrees to plan. Labs Laboratory Results Urine Color Yellow (Yellow) 03/30/22 01:58 Urine Appearance Sl hazy (CLEAR) A 03/30/22 01:58 Urine pH 6 (5-7) 03/30/22 01:58 Ur Specific Cameron 1.025 (1.005-1.030) 03/30/22 01:58 Urine Protein 1+ (Negative) H 03/30/22 01:58 Urine Glucose (UA) Norm (Normal) 03/30/22 01:58 Urine Ketones 2+ (Negative) H 03/30/22 01:58 Urine Blood 3+ (Negative) H 03/30/22 01:58 Urine Nitrate Negative (Negative) 03/30/22 01:58 Urine Bilirubin 1+ (Negative) H 03/30/22 01:58 Urine Urobilinogen 4 mg/dL (Negative) H 03/30/22 01:58 Ur Leukocyte Esterase Negative (Negative) 03/30/22 01:58 Urine RBC >100 /hpf (0-2) H 03/30/22 01:58 Urine WBC 0-4 /hpf (0-5) H 03/30/22 01:58 Ur Squamous Epith Cells None /hpf (0-5) 03/30/22 01:58 Amorphous Sediment Not Reportable 03/30/22 01:58 Urine Bacteria Trace /hpf (NONE) 03/30/22 01:58 Urine Mucus 1+ /hpf 03/30/22 01:58 Discharge Plan Discharge Patient Disposition: Home Clinical Impression: Kidney stone Condition: Stable Prescriptions: New hydrocodone-acetaminophen 5-325 mg tablet 1 tab PO Q6H PRN (Reason: pain) Qty: 14 0RF ondansetron 4 mg tablet,disintegrating 4 mg PO Q6H PRN (Reason: nausea and vomiting) Qty: 14 0RF Flomax 0.4 mg capsule 0.4 mg PO DAILY Qty: 5 0RF No Action ketorolac 10 mg tablet 10 mg PO Q6H PRN (Reason: pain) 3 Days Qty: 12 0RF Flomax 0.4 mg capsule 0.4 mg PO DAILY 7 Days Qty: 7 0RF cefdinir 300 mg capsule 300 mg PO BID 7 Days Qty: 14 0RF ondansetron 4 mg tablet,disintegrating 4 mg PO Q8H PRN (Reason: nausea and vomiting) 3 Days Qty: 9 0RF Discharge Orders: Discharge ED (Routine); Ordered 03/30/22 Ordered By: Herbie Chacko Discharge Diet: Advance as tolerated Discharge Activity: Resume usual activity Patient Instructions: Kidney Stones (ED), Opioid Safety, Pain Management Coding Level of Care Code ED Sanitation Inspector for Chg Fwd Exam Comprehensive
[2022-03-30] MEDS: ketorolac 30 mg/mL INJ 15 MG IVP (04:05)
[2022-03-30] MEDS: tamsulosin 0.4 mg Capsule PO (04:40)
[2022-03-30 04:42] VITALS: RESP 20; O2SAT 97
[2022-03-30 05:33] VITALS: BP 147/72; PULSE 62; RESP 16; O2SAT 96
--- NOTE | 2022-04-01 13:01 | DCPLANNER ---
Addendum entered by Edwina Dupree 04/05/22 13:33: Patient had a follow up appointment scheduled with urology -patient did attend appointment. Original Note: modeling manager had message to schedule a follow up appointment for patient with urology. modeling manager sent patients information to the front office staff at urology. Patients information will be printed and reviewed. Clinic will call patient with appointment information.
== END 2022-03-30 05:41 | disposition home or self-care (01) ==
PROVIDERS: Emergency Provider Emergency Medicine
DX: N20.0 Calculus of kidney (principal); Z77.22 Contact with and (suspected) exposure to environmental tobacco smoke (acute) (chronic)
CPT/HCPCS: 81001; 96361; 96374; 96375; 99284; J1170; J1885; J2405; J7030

== ENCOUNTER 2022-04-03 16:05 | Outpatient (CLI) | payer BC, MEDICAID, SELFPAY ==
--- NOTE | 2022-04-03 16:39 | XRR_ITS ---
PROCEDURE INFORMATION: Exam: XR Abdomen Exam date and time: 04/03/2022 4:20 PM Age: 41 years old Clinical indication: Abdominal pain; Generalized; Patient HX: HX bilat kidney stones, PT had pain last 6 days, no pain today; Additional info: Stones, [email or web address] on 04/03/22 @3:30pm TECHNIQUE: Imaging protocol: Radiologic exam of the abdomen. Views: Frontal supine view of the abdomen. 1 View. COMPARISON: CT abdomen pelvis con [id number] 03/29/2022 1:17 AM FINDINGS: Gastrointestinal tract: Normal. No bowel dilation. Bones/joints: Unremarkable. XR/XR KUB [id number] IMPRESSION: No acute findings.
== END 2022-04-03 16:06 | disposition home or self-care (01) ==
LOC: RAD 16:09
PROVIDERS: Visit Provider Urology
DX: N20.1 Calculus of ureter (principal)
CPT/HCPCS: 74018

== ENCOUNTER → 2022-04-04 08:41 | Outpatient (BNVA) | payer BC, MEDICAID, SELFPAY | PROVIDERS: Visit Provider Urology | DX: N20.1 Calculus of ureter (principal) | CPT/HCPCS: 81003 ==

== ENCOUNTER 2022-04-11 12:26 | Outpatient (CLI) | payer BC, MEDICAID, SELFPAY ==
--- NOTE | 2022-04-11 12:57 | XR_ITS ---
WS: [id number] Exam: XR KUB [id number] Date/Time of Exam: 04/11/2022 12:57 PM Reason For Exam: STONES Comparison 04/03/2022. No bowel obstruction or free air. Visualized organ margins are intact. Bony structures appear normal. XR/XR KUB [id number] IMPRESSION: 1. No acute abdominal process.
== END 2022-04-11 12:27 | disposition home or self-care (01) ==
LOC: RAD 12:27
PROVIDERS: Visit Provider Urology
DX: N20.1 Calculus of ureter (principal)
CPT/HCPCS: 74018; 81003